=== PATIENT | male | born 1950 | race Caucasian/White ===

== ENCOUNTER 2020-06-21 14:09 | Emergency (ER) | payer MEDICARE ==
[2020-06-21] MEDS ORDERED: Sodium Chloride 0.9% 10 ML Syringe FLUSH PRN (14:16)
[2020-06-21] MEDS ORDERED: Sodium Chloride 0.9% 1,000 ML IV ONE (14:16)
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
[2020-06-21] MEDS ORDERED: Levofloxacin/Dextrose 5%-Water 500 MG in Premix Bag 1 BAG IV ONE (15:02)
[2020-06-21 15:30] LABS: ANION GAP 28.3 mmol/L (5-15); SODIUM,NA 125 mmol/L (136-145)
[2020-06-21 15:33] LABS: CHLORIDE,CL 80 mmol/L (98-115)
--- NOTE | 2020-06-21 15:45 | CR ---
[id number] RAD/RAD Chest PA or AP 1V EXAM: SINGLE VIEW CHEST. INDICATION: UNRESPONSIVENESS COMPARISON: CORRELATION IS MADE WITH SEPTEMBER 18, 2012 FINDINGS: The lungs are clear There appear to be surgical changes of the lower cervical spine The cardiac silhouette is enlarged but stable IMPRESSION: NO ACUTE PROCESS Elliot Cabello MD 06/21/20 1544 Thank you for allowing us to participate in the care of your patient.
--- NOTE | 2020-06-21 15:46 | CT ---
[id number] CT/CT Head WO IV EXAM: CT Head WO IV CLINICAL DATA: UNRESPONSIVE PATIENT COMPARISON: CORRELATION IS MADE WITH 2013 FINDINGS: There is no mass or mass effect. There is no hemorrhage or hydrocephalus. There are no extra-axial fluid collections. There are no sites of abnormal attenuation. IMPRESSION: NO PLAIN CT EVIDENCE OF ACUTE INTRACRANIAL PROCESS. Elliot Cabello MD 06/21/20 0392 Thank you for allowing us to participate in the care of your patient.
[2020-06-21] MEDS ORDERED: Levofloxacin/Dextrose 5%-Water 250 MG in Premix Bag 1 BAG IV ONE (16:04)
[2020-06-21] MEDS ORDERED: Non-Formulary Medication 1 Each IVPUSH STA (16:05)
[2020-06-21 16:16] VITALS: BP 103/64
[2020-06-21 16:27] VITALS: PULSE 103
== END 2020-06-21 17:25 ==
LOC: KA.ED 14:09
DX: A41.9 Sepsis, unspecified organism (principal); R65.20 Severe sepsis without septic shock; N17.9 Acute kidney failure, unspecified; R79.89 Other specified abnormal findings of blood chemistry; E11.00 Type 2 diabetes mellitus with hyperosmolarity without nonketotic hyperglycemic-hyperosmolar coma (NKHHC)
CPT/HCPCS: 36415; 70450; 71045; 80053; 80307; 81001; 82550; 82553; 83605; 83690; 84484; 85025; 87040; 93005; 96361; 96365; 96376; 99285; 99285-25; A9270-GY; J1956; J7030